=== PATIENT | female | born 1995 | race Caucasian/White ===

== ENCOUNTER 2016-09-30 22:32 | Emergency (ER) | payer OTHER ==
[~2016-09-30] VITALS: Ht 157.5 cm; Wt 65.8 kg
[2016-09-30 22:59] VITALS: BP 124/69
--- NOTE | 2016-09-30 23:51 | NUR ---
Patient ambulated to bed 05.
--- NOTE | 2016-09-30 23:56 | NUR ---
PT IS 12 WEEKS , 2, PARA 1. C/O ABD PAIN STARTED ABOUT 1999.
--- NOTE | 2016-10-01 00:05 | NUR ---
Dr. Sarkar evaluating patient at bedside.
--- NOTE | 2016-10-01 00:35 | NUR ---
TAKEN FOR ULTRASOUND
[2016-10-01 03:02] VITALS: BP 116/63
--- NOTE | 2016-10-01 03:02 | NUR ---
Patient discharged with v/s stable. Written and verbal after care instructions given and explained. Patient alert, oriented and verbalized understanding of instructions. Ambulatory with steady gait. All questions addressed prior to discharge. ID band removed. Patient advised to follow up with PMD. Rx of MACROBID CAPSULE 100MG, 2 TIMES A DAY BY MOUTH given. Patient educated on indication of medication including possible reaction and side effects. Opportunity to ask questions provided and answered.
== END 2016-10-01 03:02 | disposition home or self-care (01) ==
LOC: MED 22:32
PROC: BY49ZZZ Ultrasonography of First Trimester, Single Fetus (ICD-10-PCS; principal; 2016-09-30)
DX: O23.41 Unspecified infection of urinary tract in pregnancy, first trimester (principal); Z3A.12 12 weeks gestation of pregnancy; Z36 Encounter for antenatal screening of mother